=== PATIENT | female | born 1980 | race Caucasian/White ===

== ENCOUNTER 2016-08-22 20:33 | Emergency (ER) | payer BC | END 2016-08-22 21:03 | disposition home or self-care (01) | LOC: ER 20:33 | DX: S90.32XA Contusion of left foot, initial encounter (principal); E10.9 Type 1 diabetes mellitus without complications; I10 Essential (primary) hypertension; Z90.710 Acquired absence of both cervix and uterus; Z79.899 Other long term (current) drug therapy; Z88.1 Allergy status to other antibiotic agents; Z88.8 Allergy status to other drugs, medicaments and biological substances; W21.03XA Struck by baseball, initial encounter ==